=== PATIENT | female | born 1940 | race Caucasian/White ===

== ENCOUNTER → 2018-01-14 | Outpatient (CLI) | payer MEDICARE | END | disposition home or self-care (01) | LOC: SHCH 14:00 | PROVIDERS: ATTEND Internal Medicine Cardiovascular Disease | DX: I08.1 Rheumatic disorders of both mitral and tricuspid valves (principal); I10 Essential (primary) hypertension; I48.0 Paroxysmal atrial fibrillation | CPT/HCPCS: 93306 ==

== ENCOUNTER → 2018-01-24 | Outpatient (CLI) | payer MEDICARE | END | disposition home or self-care (01) | LOC: SHCH 07:45 | PROVIDERS: ATTEND Internal Medicine Cardiovascular Disease | DX: I71.4 Abdominal aortic aneurysm, without rupture (principal) | CPT/HCPCS: 93978 ==

== ENCOUNTER 2018-11-25 06:45 | Day surgery (SDC) | payer MEDICARE ==
[~2018-11-25 06:45] MED LIST: AMLO5TAB9 PO; ATOR20TA65 PO; CALC600T12 PO; GLUC100019 PO; MAGN500C15 PO; METO-409 PO; POTA99TA21 PO; RIVA20TA PO; SODIUM CHLORIDE 0.9% 1000ML 1,000 ML IV ONE; VITA1CAP85 PO
[2018-11-25] MEDS ORDERED: LACTATED RINGERS 1000ML 1,000 ML IV ONE (07:35)
[2018-11-25 07:48] VITALS: BP 119/73
[2018-11-25] MEDS ORDERED: PROPOFOL 10 MG/ML 20ML VIAL IV ONE ×2 (08:00)
[2018-11-25 08:42] VITALS: BP 88/51
[2018-11-25 08:47] VITALS: BP 99/71
[2018-11-25 08:52] VITALS: BP 110/73
[2018-11-25 08:57] VITALS: BP 117/71
[2018-11-25 09:05] VITALS: BP 114/73
== END 2018-11-25 09:15 | disposition home or self-care (01) ==
LOC: DAH 06:45
PROVIDERS: ATTEND Surgery
DX: K57.30 Diverticulosis of large intestine without perforation or abscess without bleeding (principal); K59.00 Constipation, unspecified; I10 Essential (primary) hypertension; I48.91 Unspecified atrial fibrillation; Z79.01 Long term (current) use of anticoagulants; Z86.010 Personal history of colon polyps; Z79.899 Other long term (current) drug therapy; Z98.890 Other specified postprocedural states; Z90.49 Acquired absence of other specified parts of digestive tract; Z87.891 Personal history of nicotine dependence; Z82.49 Family history of ischemic heart disease and other diseases of the circulatory system; Z82.5 Family history of asthma and other chronic lower respiratory diseases
CPT/HCPCS: 45378; 93005; A4215; A4221; A4222; A4223; A4606; J2704 ×2; J7030; J7120

== ENCOUNTER → 2019-01-06 | Outpatient (CLI) | payer MEDICARE ==
[~2019-01-06] MED LIST changes: -SODIUM CHLORIDE 0.9% 1000ML 1,000 ML IV ONE
== END | disposition home or self-care (01) ==
LOC: OIH 15:12
PROVIDERS: ATTEND Internal Medicine
DX: S93.692A Other sprain of left foot, initial encounter (principal); M19.072 Primary osteoarthritis, left ankle and foot; X58.XXXA Exposure to other specified factors, initial encounter; Y93.89 Activity, other specified; Y92.89 Other specified places as the place of occurrence of the external cause; Y99.8 Other external cause status
CPT/HCPCS: 73620

== ENCOUNTER → 2021-08-08 | Outpatient (CLI) | payer OTHER ==
[~2021-08-08] MED LIST changes: +AMLO-257 PO; -AMLO5TAB9 PO; +CALC-1125 PO; -CALC600T12 PO; -MAGN500C15 PO; +MAGN500C4 PO; -POTA99TA21 PO; +POTA99TA26 PO
[2021-08-08 14:41] LABS: ALBUMIN 3.9 g/dL (3.5-5.0); BILIRUBIN,TOTAL 0.6 mg/dL (0.2-1.0); CREATININE 0.9 mg/dL (0.5-1.5); POTASSIUM 4.6 mmol/L (3.5-5.1)
== END | disposition home or self-care (01) ==
LOC: LAB 13:15
PROVIDERS: ATTEND Internal Medicine Cardiovascular Disease
DX: E78.5 Hyperlipidemia, unspecified (principal)
CPT/HCPCS: 36415; 80053

== ENCOUNTER → 2022-01-02 | Outpatient (CLI) | payer OTHER ==
[2022-01-02 12:29] LABS: ALBUMIN 3.8 g/dL (3.5-5.0); CREATININE 0.9 mg/dL (0.5-1.5); POTASSIUM 4.9 mmol/L (3.5-5.1); TOTAL PROTEIN, SERUM 6.9 g/dL (6.0-8.3)
== END | disposition home or self-care (01) ==
LOC: LAB 11:27
PROVIDERS: ATTEND Internal Medicine Cardiovascular Disease
DX: I10 Essential (primary) hypertension (principal)
CPT/HCPCS: 36415; 80053

== ENCOUNTER → 2022-03-21 | Outpatient (CLI) | payer OTHER ==
[~2022-03-21] MED LIST changes: +REGADENOSON 0.4 MG/5 ML PF SYG IVP SCH
== END | disposition home or self-care (01) ==
LOC: SHCH 09:54
PROVIDERS: ATTEND Internal Medicine Cardiovascular Disease
DX: I48.20 Chronic atrial fibrillation, unspecified (principal); R93.1 Abnormal findings on diagnostic imaging of heart and coronary circulation; I10 Essential (primary) hypertension; Z79.899 Other long term (current) drug therapy; Z79.01 Long term (current) use of anticoagulants
CPT/HCPCS: 78452; 96374; 93017; J2785; A9500 ×2

== ENCOUNTER → 2023-03-28 | Outpatient (CLI) | payer OTHER ==
[~2023-03-28] MED LIST changes: -REGADENOSON 0.4 MG/5 ML PF SYG IVP SCH
== END | disposition home or self-care (01) ==
LOC: SHCH 08:25
PROVIDERS: ATTEND Internal Medicine Cardiovascular Disease
DX: I08.0 Rheumatic disorders of both mitral and aortic valves (principal); I48.0 Paroxysmal atrial fibrillation; I10 Essential (primary) hypertension
CPT/HCPCS: 93306

== ENCOUNTER 2025-01-10 23:33 | Emergency (ER) | payer OTHER ==
[~2025-01-10] VITALS: Ht 170.2 cm; Wt 55.8 kg
--- NOTE | 2025-01-11 00:04 | ERN ---
ED Note History of Present Illness Stated Complaint: PALPITATIONS Chief Complaint: Palpitations Time Seen by MD: 23:41 Dictation: Patient comes in with complaint of palpitations and hot flashes. Patient has history of AFib for about two decades. She is on metoprolol and Xarelto. Recently started on lisinopril for blood pressure control as well. Denies any known history of CAD. Patient states however she is typically in sinus rhythm and rarely she will flip into AFib. Tonight while watching TV start he started having some hot flashes and palpitations and feeling like her heart was beating fast. She will have a few episodes of this. She feels better now but states that her heart does not feel normal. She did take her metoprolol prior to arrival. Allergies: Coded Allergies: No Known Drug Allergies (Unverified Allergy, Unknown, 11/22/18) Home Meds Reported Medications Vitamin B Complex (Vitamin B Complex) 1 Each Capsule, 1 EACH PO DAILY, CAP 11/22/18 Glucosamine Sulfate 2Kcl (Glucosamine) 1,000 Mg Tablet, 1000 MG PO DAILY, TAB 11/22/18 Potassium Gluconate (Potassium) 99 Mg Tablet, 99 MG PO DAILY, TAB 11/22/18 Magnesium Oxide (Magnesium) 500 Mg Capsule, 500 MG PO DAILY, CAP 11/22/18 Calcium Carbonate (Calcium) 600 Mg Tablet, 600 MG PO DAILY, TAB 11/22/18 Atorvastatin Calcium (Atorvastatin Calcium) 20 Mg Tablet, 20 MG PO DAILY, TAB 11/22/18 Amlodipine Besylate (Amlodipine Besylate) 5 Mg Tablet, 5 MG PO DAILY, TAB 11/22/18 Metoprolol Succinate (Metoprolol Succinate) 100 Mg Tab.er.24h, 100 MG PO DAILY, TAB 11/22/18 Rivaroxaban (Xarelto) 20 Mg Tablet, 20 MG PO DAILY, TAB 11/22/18 Past Medical History Past Medical History: A-Fib, Alcoholism, Hypertension Surgical History: Other Surgical History Other: CARLOS A BREAST LUMPECTOMY - BENIGN Review of System Dictation Ten systems reviewed and negative except as noted in HPI Initial Vital Sign VS Vital Signs Date Time Temp Pulse Resp B/P (MAP) Pulse Ox O2 Delivery O2 Flow Rate FiO2 01/10/25 23:40 97.9 63 14 169/88 98 Room Air 0 01/10/25 23:40 21 Physical Exam Dictation GEN: non toxic, NAD HEENT: atrumatic, PERRL, EOMI, conjunctivae normal NECK: Soft supple nontender Heart RRR, no murmurs Chest: No deformity Lungs: Lungs clear to auscultation Ab: Soft nondistended nontender Back: No midline step-offs. No gross deformity. No CVA tenderness : m/s: Moving all four extremities. No gross deformity Neuro: CN 2-12 intact. Moving all four extremities. Psych: Cooperative Results (Laboratory/Radiology) Laboratory/Radiology Laboratory Tests Test 01/11/25 00:13 White Blood Count 5.7 K/uL (4.8-10.8) Red Blood Count 4.15 MIL/uL (4.00-5.50) Hemoglobin 12.8 g/dL (12.0-16.0) Hematocrit 37.8 % (36-48) Mean Corpuscular Volume 91.1 fL (79-99) Mean Corpuscular Hemoglobin 30.8 pg (27.0-33.0) Mean Corpuscular Hemoglobin Concent 33.9 g/dL (32.0-36.0) Red Cell Distribution Width 12.9 % (11.0-15.5) Platelet Count 177 K/uL (130-400) Mean Platelet Volume 9.5 fL (7.5-10.5) Immature Granulocyte % (Auto) 0.4 % (0-1) Neutrophils (%) (Auto) 64.7 % (40.0-77.0) Lymphocytes (%) (Auto) 20.2 % (21.0-51.0) L Monocytes (%) (Auto) 12.8 % (3.0-13.0) Eosinophils (%) (Auto) 1.4 % (0.0-8.0) Basophils (%) (Auto) 0.5 % (0.0-5.0) Neutrophils # (Auto) 3.7 K/uL (1.8-7.7) Lymphocytes # (Auto) 1.2 K/uL (1.0-4.8) Monocytes # (Auto) 0.7 K/uL (0.1-1.0) Eosinophils # (Auto) 0.08 K/uL (0.00-0.70) Basophils # (Auto) 0.03 K/uL (0.00-0.20) Absolute Immature Granulocyte (auto 0.02 K/uL (0-1) Nucleated Red Blood Cells 0.0 % (0.0-0.19) Activated Partial Thromboplast Time 24.7 SEC (26.3-35.5) L Sodium Level 143 mmol/L (136-145) Potassium Level 3.7 mmol/L (3.5-5.1) Chloride Level 105 mmol/L (101-111) Carbon Dioxide Level 30 mmol/L (21-32) Blood Urea Nitrogen 19 mg/dL (7-18) H Creatinine 0.9 mg/dL (0.5-1.0) Glomerular Filtration Rate Calc 64 mL/min (>90) Random Glucose 100 mg/dL (70-105) Total Calcium 9.0 mg/dL (8.5-10.1) Magnesium Level 2.30 mg/dL (1.80-2.40) Total Creatine Kinase 83 U/L (21-232) Troponin I High Sensitivity 7 ng/L (4-50) Labs Reviewed?: Yes X-RAY Comment: [place] [address] IMAGING REPORT Signed PATIENT: DIGNA LAFLEUR MR#: [id number] : 1940 SEX: F AGE: 84 LOCATION: [facility] ORDER 54 STATUS: [facility] REPORT#: [id number] SERVICE 52 REASON: PALPITATIONS ORDERING PHYSICIAN: SILVINA PARK MD PROCEDURE: CXR1VW - CHEST 1VW EXAM: X-Ray Chest, 1 view. CLINICAL HISTORY: Palpitations. COMPARISON: None. FINDINGS: Hyperinflated bilateral lung odell. The lungs show no infiltrate or other acute findings. No pleural effusion or pneumothorax. The cardiomediastinal silhouette is within normal limits. No acute osseous abnormality. IMPRESSION: No acute cardiopulmonary pathology is evident. Hyperinflated lung odell, likely COPD. /[place] DICTATED BY: RED REID Jr., MD DATE: 01/11/25151 ELECTRONICALLY SIGNED BY: RED REID Jr., MD DATE: 01/11/25151 ED Course ED Course Orders Procedure Category Date Status Time Cbc With Differential LAB 01/10/25 Complete 23:53 Chest 1vw RAD 01/10/25 Resulted 23:53 12 Lead Ekg Tracing- EKG 01/10/25 Logged Technical 23:53 Magnesium LAB 01/10/25 Complete 23:53 Creatine Kinase, Total LAB 01/10/25 Complete 23:53 Troponin I High LAB 01/10/25 Complete Sensitivity 23:53 Partial LAB 01/10/25 Complete Thromboplastin Time 23:53 Basic Metabolic Panel LAB 01/10/25 Complete 23:53 Vital Signs Date Time Temp Pulse Resp B/P (MAP) Pulse Ox O2 Delivery O2 Flow Rate FiO2 01/11/25 00:45 97.7 65 15 161/87 97 Room Air* 0 21 01/10/25 23:40 97.9 63 14 169/88 98 Room Air* 0 21 01/10/25 23:40 97.9 63 14 169/88 98 Room Air 0 Medical Decision Making MDM Patient is in AFib now and and patient reports that her heartbeat still it does not feel normal although not as bad as it was before. She likely flipped into AFib with transient RVR which was causing her symptoms. Patient is on Xarelto and is on metoprolol and lisinopril. Currently she is well rate controlled. We will check labs and electrolytes but at this point does not need any further intervention. Heart rates in the 60s. We will continue to monitor. Labs reviewed. Heart rate continues to be well controlled in the 60s though she does have AFib. She is on Xarelto. We will rate control. She reports last time she had episodes like this was several months ago. On chest x-ray possible COPD. Patient has a remote history of about 10 pack year of smoking although she quit 50 years ago. She has active and not symptomatic. He does have a reproductive endocrinologist. Follow up with Cardiology. Discharged home. Procedure Procedure Dictation: EKG AFib 66 QRS of 123 QTC of 484 left axis deviation QRS complexes mildly widened poor R-wave progression nonspecific STT wave changes. QRS morphology left bundle branch block. Interpretation abnormal DX & DISP Disposition: Discharge Departure Impression: Primary Impression: A-fib Condition: Stable Additional Instructions: You likely had an episode of AFib with a fast heart rate which has now resolved. Follow up with the reproductive endocrinologist. Return for any recurrent or worsening symptoms. Referrals: YASMANY DRUMMOND MD (PCP) SILVINA PARK MD Jan 11, 2025 00:04
[2025-01-11 00:33] LABS: IMMATURE GRANULOCYTE ABSOLUTE 0.02 K/uL (0-1); NUCLEATED RED BLOOD CELLS 0.0 % (0.0-0.19); PLATELET COUNT (AUTO) 177 K/uL (130-400); RED BLOOD CELL COUNT(AUTO) 4.15 MIL/uL (4.00-5.50); RED CELL DISTRIBUTION WIDTH 12.9 % (11.0-15.5); WHITE BLOOD COUNT (AUTO) 5.7 K/uL (4.8-10.8)
[2025-01-11 00:40] LABS: CREATININE 0.9 mg/dL (0.5-1.0); GLOMERULAR FILTR. RATE CALC 64.0 mL/min (>90); GLUCOSE,RANDOM 100.0 mg/dL (70-105); SODIUM SERUM 143.0 mmol/L (136-145); UREA NITROGEN, BLOOD 19.0 mg/dL (7-18)
[2025-01-11 00:45] VITALS: BP 161/87; PULSE 65; RESP 15; TEMP 97.7; O2SAT 97
[2025-01-11 00:45] LABS: CREATINE KINASE, TOTAL 83.0 U/L (21-232)
--- NOTE | 2025-01-11 00:54 | HMCIMG ---
EXAM: X-Ray Chest, 1 view. CLINICAL HISTORY: Palpitations. COMPARISON: None. FINDINGS: Hyperinflated bilateral lung odell. The lungs show no infiltrate or other acute findings. No pleural effusion or pneumothorax. The cardiomediastinal silhouette is within normal limits. No acute osseous abnormality. IMPRESSION: No acute cardiopulmonary pathology is evident. Hyperinflated lung odell, likely COPD. /[place]
--- NOTE | 2025-01-11 07:37 | EKG ---
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
== END 2025-01-11 01:49 | disposition home or self-care (01) ==
LOC: EDH 23:33
DX: I48.91 Unspecified atrial fibrillation (principal); I10 Essential (primary) hypertension; Z79.01 Long term (current) use of anticoagulants; Z79.899 Other long term (current) drug therapy
CPT/HCPCS: 36415; 71045; 80048; 82550; 83735; 84484; 85025; 85730; 93005; 99283